=== PATIENT | male | born 1945 | race Two or more races ===

== ENCOUNTER 2025-02-10 21:03 | Emergency (ER) | payer OTHER, MEDICAID, SELFPAY ==
[2025-02-10 21:03] VITALS: BMI 25.7
[2025-02-10 21:11] VITALS: BP 126/79; PULSE 71; RESP 19; TEMP 36.6; O2SAT 96
--- NOTE | 2025-02-10 21:39 | XR_ITS ---
Examination: CT abdomen and pelvis without contrast. Coronal 3-D reconstructions. Sagittal 2-D reconstructions. Date and time of exam: February 10, 2025, 1008 hours, comparison July 17, 2018 INDICATIONS: Abdominal pain beginning 2 days ago CTDI: vol (mGy): 6.61 DLP: (mGycm): 380 Technique: Axial images of the abdomen have been obtained, 3 mm slice thickness Intravenous contrast material has not been administered. Low dose protocols were performed. One or more of the following dose reduction techniques were used; automated exposure control, adjustment of the mA and/or KV according to patient size, use of iterative reconstruction technique. Findings: No focal liver or splenic lesions No gallstones No pancreatic or adrenal mass Small left parapelvic cysts Normal appendix No bowel obstruction Abundant stool in the rectosigmoid Left hip arthroplasty obscures detail in the pelvis Moderate prostatomegaly Contracted urinary bladder Moderate osteopenia IMPRESSION: No renal or ureteral calculi, no hydronephrosis Normal appendix No bowel obstruction Abundant stool in the rectosigmoid
--- NOTE | 2025-02-10 21:40 | EDRME_ITS ---
Rapid Medical Screening Exam [facility] Arrival date/time: 02/10/25 21:03 This is a case of 79-year-old male with history of peptic ulcer disease came into the emergency room due to generalized abdominal pain for 2 days associated with nausea vomiting worsening of the symptoms this patient decided to sought consult here in the emergency room Chief Complaint: Abdominal Pain Vital signs: Vital Signs Temperature 98 F 02/10/25 21:11 Pulse Rate 71 02/10/25 21:11 Respiratory Rate 19 02/10/25 21:11 Blood Pressure 126/79 02/10/25 21:11 Pulse Oximetry (%) 96 02/10/25 21:11 Oxygen Delivery Method Room Air 02/10/25 21:11 Exam: Moderate tenderness on the epigastric area and right lower quadrant no guarding no rebound no rigidity Clinical Impression: Abdominal pain
[2025-02-10 22:14] LABS: Collection Type, Urine Clean Catch
[2025-02-10] MEDS: MORPHINE SULF INJ 4 MG/ML VIAL IVP (22:17)
[2025-02-10] MEDS: SODIUM CHLORIDE 0.9% 1000 ML 1,000 ML 999 ML IV (22:17)
[2025-02-10] MEDS: ONDANSETRON INJ 2 MG/ML INJ 2 ML 4 MG IVP (22:17)
[2025-02-10 22:21] LABS: Basophils # (Auto) 0.0 Thou/mm3 (0.0-0.2); Basophils % (Auto) 0 % (0-2.5); Eosinophils # (Auto) 0.1 Thou/mm3 (0.0-0.5); Eosinophils % (Auto) 1 % (0-10); Hematocrit 43.3 % (41.0-53.0); Hemoglobin 14.4 g/dL (13.5-16.0); Immature Granulocytes Auto 0.04 Thou/mm3 (0.00-0.00); Lymphocytes # (Auto) 1.9 Thou/mm3 (1.0-4.8); Lymphocytes % (Auto) 22 % (10-50); Mean Corpuscular HGB Conc 33.3 g/dl (31.0-37.0); Mean Corpuscular Hemoglobin 31.0 pg (25.0-35.0); Mean Corpuscular Volume 93 fL (80-100); Monocytes # (Auto) 0.7 Thou/mm3 (0.0-0.8); Monocytes % (Auto) 8 % (0-12); Neutrophils # (Auto) 5.9 Thou/mm3 (1.8-7.7); Neutrophils % (Auto) 68 % (37-80); Nucleated Red Blood Cell # 0.00 Thou/mm3 (0.00-0.00); Nucleated Red Blood Cell % 0 /100 WBC (0); Platelet Count 219 Thou/mm3 (140-440); RDW Standard Deviation 46.6 fL (35.1-43.9); Red Blood Count 4.65 Miln/mm3 (4.50-5.90); White Blood Count 8.6 Thou/mm3 (3.8-10.6)
[2025-02-10 22:39] LABS: Alanine Aminotransferase 15 U/L (10-49); Albumin, Serum 4.9 gm/dL (3.4-4.8); Albumin/Globulin Ratio 2.3 (1.2-2.2); Alkaline Phosphatase 83 U/L (46-116); Anion Gap 8 (7-16); Aspartate Amino Transferase 23 U/L (0-34); BUN/Creatinine Ratio 8 Ratio (12-20); Bilirubin,Total 0.7 mg/dL (0.3-1.2); Blood Urea Nitrogen 9 mg/dL (9-23); Calcium 10.1 mg/dL (8.3-10.6); Calcium (Corrected) 10.1 mg/dL (8.5-10.1); Carbon Dioxide 33.0 mMol/L (20.0-31.0); Chloride 101 mMol/L (98-107); Creatinine (Component) 1.2 mg/dL (0.6-1.3); Estimated Creatinine Clearance 43.2 mL/min (>60); Globulin 2.1 gm/dL (2.3-3.5); Glucose 122 mg/dL (74-106); Lipase 34 U/L (12-53); Osmolality,Calculated 282 (275-295); Potassium 3.2 mMol/L (3.4-5.1); Sodium 142 mMol/L (136-145); Total Protein 7.0 gm/dL (5.7-8.2); eGFR > 60 See Note
[2025-02-10 22:41] LABS: Bacteria,Urine Rare; Bilirubin,Urine Negative (Negative); Blood,Urine Negative (Negative); Clarity,Urine Clear (Clear/Hazy); Color,Urine Yellow (Lt Yel-Yel); Glucose, Urine Negative (Negative); Ketones,Urine Negative (Negative); Leukocyte Esterase,Urine Negative (Negative); Nitrite,Urine Negative (Negative); PH,Urine 6.5 (5.0-7.0); Protein,Urine Trace (Neg - Trace); RBC,Urine 10 /hpf (0-3); Specific Gravity,Urine 1.028 (1.001-1.035); Squamous Epithelial Cell,Urine < 1 /hpf (0-5); Urobilinogen,Urine 3.0 mg/dL (0.0-1.0); WBC,Urine 1 /hpf (0-5)
[2025-02-10 23:00] VITALS: BP 125/69; PULSE 55; RESP 13; TEMP 36.9; O2SAT 95
--- NOTE | 2025-02-11 00:08 | PD.EDABDPN ---
ED Abdominal Pain RME/HPI General Chief Complaint: Abdominal Pain Stated complaint: ABD PAIN SINCE THIS MORNING Arrival date/time: 02/10/25 21:03 RME / HPI RME / HPI narrative: 02/10/25 21:03 This is a case of 79-year-old male with history of peptic ulcer disease came into the emergency room due to generalized abdominal pain for 2 days associated with nausea vomiting worsening of the symptoms this patient decided to sought consult here in the emergency room DR. VARGAS MAIN ED EVALUATION: Patient presenting with generalized abdominal pain x approximately 1-2 days with mild nausea without emesis. No definite fever or chills. Last BM was approximately 1 week ago (typically QOD), no dysuria, urinary frequency, or hematuria. PMH: Myocardial Infarction, Coronary Artery Disease, Hypercholesterolemia, Ulcer, Obstructive Bowel, Gastroesophageal Reflux Disease, Arthritis PSH: Cardiac Stents, Hip Surgery, Shoulder Surgery, Cardiac Catheterization Allergies: IBU Social: Negative Exam: Moderate tenderness on the epigastric area and right lower quadrant no guarding no rebound no rigidity Impression: Abdominal pain Related Data Home Medications ?Medication ?Instructions ?Recorded ?Confirmed tramadol 50 mg tablet 50 mg PO Q6H PRN Pain 07/17/18 10/03/18 Previous Rx's ?Medication ?Instructions ?Recorded aspirin 325 mg tablet 325 mg PO QDAY #100 tabs 10/07/18 atorvastatin 20 mg tablet 40 mg (2 x 20 mg) PO HS #30 tabs 10/07/18 carvedilol 3.125 mg tablet 6.25 mg (2 x 3.125 mg) PO BID #60 10/07/18 tabs clopidogrel 75 mg tablet (Plavix) 75 mg PO QDAY #30 tabs 10/07/18 isosorbide mononitrate 30 mg 30 mg PO QAM #30 tabs 10/07/18 tablet,extended release 24 hr ramipril 2.5 mg capsule 5 mg (2 x 2.5 mg) PO QDAY #30 caps 10/07/18 ranitidine HCl 150 mg tablet (Acid 150 mg PO BID #60 tabs 10/07/18 Control (ranitidine)) tramadol 50 mg tablet 50 mg PO Q6HR PRN Pain #120 tabs 10/07/18 Allergies Allergy/AdvReac Type Severity Reaction Status Date / Time ibuprofen Allergy Verified 02/10/25 21:03 Review of Systems Review of Systems Systems Reviewed: All systems reviewed, normal except as documented Past Medical History Past Medical History CARDIAC: Positive Cardiac Disorders (6 heart stents 2002), Myocardial Infarction, Coronary Artery Disease and Hypercholesterolemia GASTROINTESTINAL: Positive Ulcer, Obstructive Bowel and Gastroesophageal Reflux Disease MUSCULOSKELETAL: Positive Arthritis Family History FAMILY HISTORY: Positive Family Cardiac Disorders Surgical History SURGICAL: Positive Cardiac Surgery, Coronary Stent (6 stents), Cardiac Catheterization, of Shoulder Sx (right) and Hip Sx (left) ED Exam Narrative Physical exam: GEN. APPEARANCE: The patient is alert awake oriented X-3 under no distress, lying down comfortably, does not look ill/toxic. Patient has good eye contact. Patient is cooperative. VITALS: All vitals were reviewed and the pulse ox is 95%, which is normal according to my interpretation HEENT: Normocephalic, atraumatic and nontender. Pupils are equal and reactive. Oral mucosa is moist. NECK: Supple, nontender, no meningismus, no JVD. There is no thyromegaly and no lymphadenopathy. CHEST: Nontender on palpation no deformity and no crepitus. CARDIOVASCULAR: Heart regular rhythm, no murmur or gallop rub or extra beats. LUNGS: Clear to auscultation bilaterally with symmetrical chest rise. No laboring tachypnea or wheezing. No intercostal subcostal retraction. No rales and no rhonchi. ABDOMEN: Soft, high pitched hypoactive bowel sounds, mild diffuse tenderness, no peritoneal findings or guarding. RECTAL: soft stool, no signs of fecal impaction. EXTREMITIES: Normal inspection and palpation. No edema. No cyanosis. Patient is able to move all 4 extremities well SKIN: Warm and dry, no rashes noted. MUSCULOSKELETAL: No lumbar or midline bony tenderness. There is no CVA tenderness. No paraspinal muscle spasm or tenderness. NEURO: Cranial nerves II through XII grossly intact. There are no focal neurologic deficits noted. GCS is 15 PSYCHIATRIC: Patient is in normal mood and affect, cooperative. LYMPHATICS: No major lymphadenopathy noted. Course Quality Measures none Orders Category Date Time Status Insert IV NOW Care 02/10/25 21:[address] abdomen pelvis wo con Stat Exams 02/10/25 21:39 Completed CBC Stat Lab 02/10/25 21:55 Completed Comprehensive Metabolic Panel Stat Lab 02/10/25 21:55 Completed Lipase Stat Lab 02/10/25 21:55 Completed Urinalysis Stat Lab 02/10/25 21:48 Completed Morphine* Inj Med 02/10/25 21:39 Discontinued 4 mg IVP X1 ONE Ondansetron Inj [Zofran Inj] Med 02/10/25 21:39 Discontinued 4 mg IVP X1 ONE Pantoprazole Inj [Protonix Inj] Med 02/10/25 21:39 Discontinued 40 mg IVP X1 ONE Sodium Chloride 0.9% 1000 ml [Ns] 1,000 ml Med 02/10/25 21:39 Discontinued IV 999 mls/hr Vital Signs Vital signs: Vital Signs Temperature 98 F 02/10/25 21:11 Pulse Rate 71 02/10/25 21:11 Respiratory Rate 19 02/10/25 21:11 Blood Pressure 126/79 02/10/25 21:11 Pulse Oximetry (%) 96 02/10/25 21:11 Oxygen Delivery Method Room Air 02/10/25 21:11 PROCEDURES: Rectal Disimpaction Time out performed rectal disimpaction: Yes Indication: fecal impaction Procedural Sedation: No Sedation/Analgesia: none Technique: manual disimpaction with gloved finger Patient Tolerated Procedure: well and no complications Complications: none Additional Comments: No impaction, small amount of soft stool present. Stool Hemoccult Procedural Steps Taken: stool placed in appropriate test area, developer placed on stool and control areas and controls appropriately positive and negative Hemoccult result: negative Abdominal Pain MDM MDM Narrative MDM Narrative:: Scribe Attestation: Jordyn Tinoco am scribing for and in the presence of Dr. Weldon. Provider Notation: Although this document has been carefully reviewed, there may still be some phonetic and other typographical errors. These errors are purely grammatical due to imperfections in the software program and should not be construed in any way to compromise the substance of the patient's medical care during this visit. Patient presenting with generalized abdominal pain x approximately 1-2 days with mild nausea without emesis. No definite fever or chills. Last BM was approximately 1 week ago (typically QOD), no dysuria, urinary frequency, or hematuria. Please see PE findings. Laboratory markers including CBC and serum demonstrated a WBC of 10.9, hemoglobin at 9.5. Platelets normal. no left shift or bandemia. Serum chem essentially unre. UA without infection. CT scan demonstrates of rectal sigmoidal stool burden without associated bowel inflammation. Administer magnesium citrate and discharge home with Rx to [facility]. Advised to maintain hydration and clear liquid diet for 24 hours. Patient data External records reviewed:: [facility] previous records (Reviewed prior ED records from 10/03/18. Patient was seen for History of peptic ulcer disease.) Clinical information provided by:: patient Social determinants that could affect healthcare access:: none Patient has the following chronic illnesses:: Myocardial Infarction, Coronary Artery Disease, Hypercholesterolemia, Ulcer, Obstructive Bowel, Gastroesophageal Reflux Disease, Arthritis How is presenting disease/condition affected by chronic disease/condition?: exacerbated by Evaluation data The following diagnostics were reviewed and interpreted by me:: lab results and radiology exam(s) Lab and/or radiology exams considered but not ordered:: None Interpretation Summary: RADIOLOGY Abdomen/Pelvis CT: Findings: No focal liver or splenic lesions No gallstones No pancreatic or adrenal mass Small left parapelvic cysts Normal appendix No bowel obstruction Abundant stool in the rectosigmoid Left hip arthroplasty obscures detail in the pelvis Moderate prostatomegaly Contracted urinary bladder Moderate osteopenia IMPRESSION: No renal or ureteral calculi, no hydronephrosis Normal appendix No bowel obstruction Abundant stool in the rectosigmoid Medications / Prescriptions Medications or Prescriptions considered but not ordered:: None Medication administrations:: Medication Administration History Discontinued Medications Sodium Chloride (Ns) 1,000 mls @ 999 mls/hr IV .Q1H1M ONE Stop: 02/10/25 22:39 Last Infusion: 02/10/25 23:37 Dose: Infused Documented By: Admin: 02/10/25 22:17 Dose: 999 mls/hr Documented By: BD Morphine Sulfate (Morphine Sulf Inj 4 Mg/Ml Vial) 4 mg IVP X1 ONE Stop: 02/10/25 21:40 Last Admin: 02/10/25 22:17 Dose: 4 mg Documented By: BD Ondansetron HCl (Ondansetron Inj 2 Mg/Ml Inj 2 Ml) 4 mg IVP X1 ONE; Protocol Stop: 02/10/25 21:40 Last Admin: 02/10/25 22:17 Dose: 4 mg Documented By: BD Pantoprazole Sodium (Pantoprazole Inj 40 Mg Vial) 40 mg IVP X1 ONE Stop: 02/10/25 21:40 Last Admin: 02/10/25 22:17 Dose: 40 mg Documented By: BD See above if any Consultations Consultation(s) initiated? (list below): No Diagnosis Differential diagnosis abdominal pain: abdominal pain, constipation, diverticulitis, gastroenteritis and small bowel obstruction Most likely diagnosis given after review of the tests above:: Constipation Admission Indicated Admission indicated?: not indicated Explain why admission is indicated or not indicated:: Patient does not meet admission criteria Admission Request Was there a request for admission?: No Disposition Plan Disposition Plan: Discharge Discharge Attestation Discharge Attestation: The patient and all family members were given an opportunity to ask questions and understood the discharge instructions. Discharge instructions specifically effects, indications for sooner follow up or return to the emergency department, and the expected course of current diagnosis. Patient condition: Stable Discharge Plan Plan Patient Disposition: HOME (Self Care) Prescriptions/Referrals Prescriptions/Med Rec: No Action tramadol 50 mg Tablet 50 mg PO Q6H PRN (Reason: Pain) atorvastatin 20 mg Tablet 40 mg PO HS Qty: 30 0RF aspirin 325 mg Tablet 325 mg PO QDAY Qty: 100 0RF isosorbide mononitrate 30 mg Tablet Extended Release 24 Hr 30 mg PO QAM Qty: 30 0RF clopidogrel [Plavix] 75 mg Tablet 75 mg PO QDAY Qty: 30 0RF tramadol 50 mg Tablet 50 mg PO Q6HR PRN (Reason: Pain) Qty: 120 0RF carvedilol 3.125 mg Tablet 6.25 mg PO BID Qty: 60 0RF ramipril 2.5 mg Capsule 5 mg PO QDAY Qty: 30 0RF ranitidine HCl [Acid Control (ranitidine)] 150 mg tablet 150 mg PO BID Qty: 60 0RF Referrals: Abe Angulo MD [Primary Care Provider, Family Practice] - In 1 week Problem List Clinical Impression: Constipation Patient/Caregiver Discharge Instructions Print Language: [place] Stand Alone Forms: Mai Award Info., Patient Portal Info Letter
[2025-02-11 01:00] VITALS: BP 120/69; PULSE 66; RESP 18; O2SAT 99
[2025-02-11] MEDS: MAGNESIUM CITRATE 300 ML BTL 150 ML PO (01:09)
== END 2025-02-11 01:35 | disposition home or self-care (01) ==
PROVIDERS: Nurse Practitioner Family; Emergency Provider Emergency Medicine; PCP Family Medicine
DX: K59.00 Constipation, unspecified (principal)
CPT/HCPCS: 36415; 74176; 80053; 81001; 83690; 85025; 96361; 96374; 96375; 99284; J2270; J2405; J2470; J7030; A9270